=== PATIENT | male | born 1990 | race Caucasian/White ===

== ENCOUNTER 2018-08-17 16:47 | Emergency (ER) | payer SELFPAY ==
[~2018-08-17] VITALS: Ht 177.8 cm; Wt 108.9 kg
--- OUTSIDE RECORDS SUMMARY | 2018-08-17 16:53 | XMS REPORT ---
Author Author KISHA ARIZMENDI Organization [facility] Address [address] [place] [address] Care Team Providers Care Aviation Ordnance Officer Name Role Phone KISHA ARIZMENDI Unavailable PROBLEMS Type Condition ICD9-CM Code [id number] Code Onset Dates Condition Status SNOMED Code Problem Generalized anxiety disorder F41.1 Active 96959661 Problem 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.25 Active 69404122 Problem Major depression, recurrent, chronic F33.9 Active 62258694 Problem HSV-2 (herpes simplex virus 2) infection B00.9 Active 498358145 Problem Leukocytosis, unspecified type D72.829 Active 382810847 Problem Sebaceous cyst of penis N48.89 Active 501742900010641 Problem Acute left-sided low back pain with left-sided sciatica M54.42 Active 286861569 Problem Moderate single current episode of major depressive disorder F32.1 Active 97616552 Problem Anxiety, generalized F41.1 Active 63317677 Problem 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 Active 44930566 Problem Reactive depression F32.9 Active 01505714 Problem Adjustment disorder with depressed mood F43.21 Active 24807525 ALLERGIES No Known Allergies ENCOUNTERS Encounter Location Date Diagnosis [facility] [address] [place] [address] Jun, Bacterial conjunctivitis of left eye H10.9 [facility] [id number] [place] [address] Aug, Acute left-sided low back pain with left-sided sciatica M54.42 [facility] [id number] [place] [address]66[address] May, Encounter to establish care with new doctor Z76.89 ; Tobacco use Z72.0 ; Moderate single current episode of major depressive disorder F32.1 and 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 [facility] [address], [place] [address] May, [place] [address] [place] [address] May, Generalized anxiety disorder F41.1 ; Major depression, recurrent, chronic F33.9 ; 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.25 and Adjustment disorder with depressed mood F43.21 [facility] [address] [place] [address] May, Adjustment disorder with depressed mood F43.21 ; Anxiety, generalized F41.1 and Reactive depression F32.9 [facility] [address], [place] [address] Dec, 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 [place] [id number] [place] [address] Oct, [place] [id number] [place] [address] Oct, 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.25 ; Generalized anxiety disorder F41.1 and Major depression, recurrent, chronic F33.9 [place] [address] [address] Oct, [facility] [id number] [place] [address] Oct, Generalized anxiety disorder F41.1 and Major depression, recurrent, chronic F33.9 [facility] [address] [address] Oct, DMDD (disruptive mood dysregulation disorder) F34.81 ; Major depression, recurrent, chronic F33.9 and Generalized anxiety disorder F41.1 [place] [address] [address] Oct, Generalized anxiety disorder F41.1 ; Major depression, recurrent, chronic F33.9 and Difficulty controlling anger R45.4 [facility] [place] [address] [place] [address] Sep, Dysuria R30.0 ; Screening for STD sexually transmitted disease Z11.3 and Urethritis N34.2 [facility]ALK [facility] [place] [id number] [place] [address] Jul, Sebaceous cyst of penis N48.89 [place] [address] [address] Apr, [place] [address] [address] Mar, [facility] [place] [address] [address] Mar, Hematuria R31.9 and Testicular pain, left N50.8 [facility] [place] [id number] [place] [address] Jan, Acute upper respiratory infection, unspecified J06.9 [place] [id number] [place] [address] Mar, Exposure to venereal disease V01.6 IMMUNIZATIONS No Known Immunizations SOCIAL HISTORY Never Assessed REASON FOR VISIT left eye infection started Thursday JStrasserRN PLAN OF CARE Activity Details Follow Up 2 - 3 Days, prn Reason:if symptoms worsen VITAL SIGNS Height 71.5 in 2018-06-09 Weight 241.0 lbs 2018-06-09 Temperature 98.7 degrees Fahrenheit 2018-06-09 Heart Rate 100 bpm 2018-06-09 Respiratory Rate 22 2018-06-09 BMI 33.14 kg/m2 2018-06-09 Blood pressure systolic 130 mmHg 2018-06-09 Blood pressure diastolic 90 mmHg 2018-06-09 MEDICATIONS Medication Instructions Dosage Frequency Start Date End Date Duration Status Gentamicin Sulfate 0.3 % Ophthalmic every 4 hrs 1 drop into affected eye 4h Jun, 05 days Active RESULTS No Results PROCEDURES No Known procedures INSTRUCTIONS MEDICATIONS ADMINISTERED No Known Medications MEDICAL (GENERAL) HISTORY Type Description Date Medical History ruptured the right testicle Medical History depression Medical History anxiety Hospitalization History [facility] 2016
--- OUTSIDE RECORDS SUMMARY | 2018-08-17 16:53 | XMS REPORT ---
Author Author KARLY DUTTON Organization [facility] Address Unknown Care Team Providers Care Embedder Name Role Phone KARLY DUTTON Unavailable PROBLEMS Type Condition ICD9-CM Code [id number] Code Onset Dates Condition Status SNOMED Code Problem Sebaceous cyst of penis N48.89 Active 525430276007077 Problem Major depression, recurrent, chronic F33.9 Active 53785285 Problem Generalized anxiety disorder F41.1 Active 40150965 Problem HSV-2 (herpes simplex virus 2) infection B00.9 Active 785452284 Problem Moderate single current episode of major depressive disorder F32.1 Active 81784177 Problem Reactive depression F32.9 Active 49841607 Problem 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 Unknown Non Drug Allergy Oct, Unknown SOCIAL HISTORY No smoking Hx information available PLAN OF CARE Activity Details Follow Up 4 Weeks Reason: VITAL SIGNS Height 71.5 in 2016-10-08 Weight 254.7 lbs 2016-10-08 Heart Rate 80 bpm 2016-10-08 Respiratory Rate 20 2016-10-08 BMI 35.02 kg/m2 2016-10-08 Blood pressure systolic 138 mmHg 2016-10-08 Blood pressure diastolic 80 mmHg 2016-10-08 MEDICATIONS Medication Instructions Dosage Frequency Start Date End Date Duration Status Doxycycline Hyclate 100 MG Orally every 12 hrs 1 capsule 12h Sep, Oct, 7 days Active Oxcarbazepine 300 MG Orally voucher twice a day 1 tablet 12h Oct, 30 days Active Citalopram Hydrobromide 20 MG Orally Once a day 1 tablet 24h Oct, 30 day(s) Active RESULTS No Results PROCEDURES Procedure Date Ordered Related Diagnosis Body Site MH Office Visit, Est Pt., Level 3 Oct 08, 2016 IMMUNIZATIONS No Known Immunizations
--- OUTSIDE RECORDS SUMMARY | 2018-08-17 16:53 | XMS REPORT ---
Author Author KARLY KEATING Organization [facility] Address [address] [place] [address] Care Team Providers Care Competitive Intelligence Analyst Name Role Phone KARLY KEATING Unavailable PROBLEMS Type Condition ICD9-CM Code OIU12-YG Code Onset Dates Condition Status SNOMED Code Problem Sebaceous cyst of penis N48.89 Active 870090384185168 Problem Major depression, recurrent, chronic F33.9 Active 45428928 Problem Generalized anxiety disorder F41.1 Active 23624568 Problem HSV-2 (herpes simplex virus 2) infection B00.9 Active 300024827 Problem Moderate single current episode of major depressive disorder F32.1 Active 58320389 Problem Reactive depression F32.9 Active 18189134 Problem 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 Unknown Non Drug Allergy Sep, Unknown SOCIAL HISTORY No smoking Hx information available PLAN OF CARE Activity Details Follow Up prn Reason: VITAL SIGNS Height 71.5 in 2016-10-03 Weight 254.6 lbs 2016-10-03 Temperature 99.7 degrees Fahrenheit 2016-10-03 Heart Rate 88 bpm 2016-10-03 Respiratory Rate 18 2016-10-03 BMI 35.01 kg/m2 2016-10-03 Blood pressure systolic 144 mmHg 2016-10-03 Blood pressure diastolic 86 mmHg 2016-10-03 MEDICATIONS Medication Instructions Dosage Frequency Start Date End Date Duration Status Tylenol 325 MG Orally every 6 hrs 1 tablet as needed 6h Active Doxycycline Hyclate 100 MG Orally every 12 hrs 1 capsule 12h 30 Sep, 2016 Oct, 7 days Active RESULTS Name Result Date Reference Range CULTURE, GENITAL 2016-10-03 Genital Culture, Routine Final report Result 1 Result 2 Mixed skin charity UA LONG DIP (IN HOUSE) 2016-10-03 Lot # [id number] Exp date 2017 Clarity clear Color yellow Odor none GLU negative MERA 1+ KET negative SG >1.030 BLO negative pH 6.0 Protein 1+ URO 0.2 NIT negative NEEMA negative Lot # [id number] Exp date 2017 11 CULTURE, VIRAL (HSV W/ TYPING) 2016-10-03 HSV Culture/Type GC/CHLAM URINE (STATE) 2016-10-03 CHLAMYDIA GC PROCEDURES Procedure Date Ordered Related Diagnosis Body Site URINALYSIS, AUTO, W/O SCOPE Oct 03, 2016 No Charge Oct 03, 2016 Office Visit, Est Pt., Level 3 Oct 03, 2016 CULTURE, BACTERIA, OTHER Oct 03, 2016 AWAIS VIRUS ISOLATE, HSV Oct 03, 2016 THER/PROPH/DIAG INJ, SC/IM Oct 03, 2016 ROCEPHIN 250 MG (IM) Oct 03, 2016 IMMUNIZATIONS Vaccine Route Administration Date Status ROCEPHIN 250 MG (IM) IM Intramuscular Oct 03, 2016 Administered
--- OUTSIDE RECORDS SUMMARY | 2018-08-17 16:53 | XMS REPORT ---
Author Author KAYDEN NELSON Organization [facility] Address [address] [place] [address] Care Team Providers Care Bolt Header Name Role Phone NELSONADALBERTO ParsonsELE Unavailable PROBLEMS Type Condition ICD9-CM Code [id number] Code Onset Dates Condition Status SNOMED Code Problem Generalized anxiety disorder F41.1 Active 38711928 Problem 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.25 Active 55206019 Problem Major depression, recurrent, chronic F33.9 Active 47565990 Problem HSV-2 (herpes simplex virus 2) infection B00.9 Active 800392401 Problem Leukocytosis, unspecified type D72.829 Active 404806889 Problem Sebaceous cyst of penis N48.89 Active 639191940461312 Problem Acute left-sided low back pain with left-sided sciatica M54.42 Active 039162928 Problem Moderate single current episode of major depressive disorder F32.1 Active 04772474 Problem Anxiety, generalized F41.1 Active 87632975 Problem 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 Active 52118849 Problem Reactive depression F32.9 Active 78176405 Problem Adjustment disorder with depressed mood F43.21 Active 84331279 ALLERGIES No Known Allergies ENCOUNTERS Encounter Location Date Diagnosis [facility] [id number], [place] [address] Aug, Acute left-sided low back pain with left-sided sciatica M54.42 [facility] [id number], [place] [address] May, Encounter to establish care with new doctor Z76.89 ; Tobacco use Z72.0 ; Moderate single current episode of major depressive disorder F32.1 and 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 [facility] [id number], [place] [address] May, [place] [address] [place] [address] May, Generalized anxiety disorder F41.1 ; Major depression, recurrent, chronic F33.9 ; 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.25 and Adjustment disorder with depressed mood F43.21 [place] [address] [place] [id number] [place] [address] May, Adjustment disorder with depressed mood F43.21 ; Anxiety, generalized F41.1 and Reactive depression F32.9 [facility] [id number] [place] [address] Dec, 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 [place] [address] [id number] [place] [address]678[address] Oct, [place] [address] [address] Oct, 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.25 ; Generalized anxiety disorder F41.1 and Major depression, recurrent, chronic F33.9 [place] [id number] [place] [address]89[address] Oct, [place] [address] [address] [id number] [place] [address] Oct, Generalized anxiety disorder F41.1 and Major depression, recurrent, chronic F33.9 [place] [address] [address] [id number] [place] [address]43[address] Oct, DMDD (disruptive mood dysregulation disorder) F34.81 ; Major depression, recurrent, chronic F33.9 and Generalized anxiety disorder F41.1 [place] [id number] [place] [address]70[address] Oct, Generalized anxiety disorder F41.1 ; Major depression, recurrent, chronic F33.9 and Difficulty controlling anger R45.4 [facility] WALK IN [facility] [id number] [place] [address] Sep, Dysuria R30.0 ; Screening for STD sexually transmitted disease Z11.3 and Urethritis N34.2 [facility] IN CARE [facility] [address] [address] [id number] [place] [address] Jul, Sebaceous cyst of penis N48.89 [place] [address] [id number] [place] [address]6583[address] Apr, [facility] [address] [address] Mar, [facility] WALK IN [place] [address] [address] Mar, Hematuria R31.9 and Testicular pain, left N50.8 [facility]ALK IN [place] [id number] [place] [address] Jan, Acute upper respiratory infection, unspecified J06.9 [place] [id number] [place] [address]3599[address] Mar, Exposure to venereal disease V01.6 IMMUNIZATIONS No Known Immunizations SOCIAL HISTORY Never Assessed REASON FOR VISIT hip pain: pain started approx 3 weeks ago, no known injury. Lifts tires repetitively at work. Started radiating down left leg and into lower back 1 week ago. Cannot sit or lie without pain, most comfortable position is standing. carrie bartholomew PLAN OF CARE Activity Details Follow Up prn Reason: VITAL SIGNS Height 71.5 in 2017-08-31 Weight 240.2 lbs 2017-08-31 Temperature 98.4 degrees Fahrenheit 2017-08-31 Heart Rate 88 bpm 2017-08-31 Respiratory Rate 20 2017-08-31 BMI 33.03 kg/m2 2017-08-31 Blood pressure systolic 122 mmHg 2017-08-31 Blood pressure diastolic 76 mmHg 2017-08-31 MEDICATIONS Medication Instructions Dosage Frequency Start Date End Date Duration Status Zanaflex 4 MG Orally Three times a day 1 tablet as needed 8h Active PredniSONE 10 mg Orally Once a day 5 tabs x 4 day, 4 tabs x 4 days, 3 tabs x 4 days, 2 tabs x 4 days, then 1 tab x 4 days 24h Aug, Sep, 16 days Active Diclofenac Sodium 75 MG Orally Twice a day 1 tablet with food or milk 12h Aug, Sep, 30 day(s) Active Flexeril Active Hydrocodone-Acetaminophen 10-325 MG Orally every 6 hrs 1 tablet as needed 6h Active RESULTS Name Result Date Reference Range Xray : Spine, Lumbar 2-3 views (IN HOUSE) 2017-08-31 PROCEDURES Procedure Date Ordered Result Body Site X-RAY EXAM OF LOWER SPINE Aug 31, 2017 INSTRUCTIONS MEDICATIONS ADMINISTERED No Known Medications MEDICAL (GENERAL) HISTORY Type Description Date Medical History ruptured the right testicle Medical History depression Medical History anxiety Hospitalization History [facility] 2016
--- OUTSIDE RECORDS SUMMARY | 2018-08-17 16:53 | XMS REPORT ---
Author Author KAYDEN NELSON Organization [facility] Address [address] [place] [address] Care Team Providers Care Senior Data Analyst Name Role Phone NELSON KAYDEN Unavailable PROBLEMS Type Condition ICD9-CM Code [id number] Code Onset Dates Condition Status SNOMED Code Problem Generalized anxiety disorder F41.1 Active 87308745 Problem 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.25 Active 92131326 Problem Major depression, recurrent, chronic F33.9 Active 74974960 Problem HSV-2 (herpes simplex virus 2) infection B00.9 Active 964277925 Problem Leukocytosis, unspecified type D72.829 Active 011367337 Problem Sebaceous cyst of penis N48.89 Active 674398127480426 Problem Acute left-sided low back pain with left-sided sciatica M54.42 Active 339727766 Problem Moderate single current episode of major depressive disorder F32.1 Active 22833820 Problem Anxiety, generalized F41.1 Active 70050840 Problem 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 Active 25676544 Problem Reactive depression F32.9 Active 93189091 Problem Adjustment disorder with depressed mood F43.21 Active 55613372 ALLERGIES No Known Allergies ENCOUNTERS Encounter Location Date Diagnosis [facility]ARE [id number], [place] [address] Aug, Acute left-sided low back pain with left-sided sciatica M54.42 [facility] [id number], [place] [address] May, Encounter to establish care with new doctor Z76.89 ; Tobacco use Z72.0 ; Moderate single current episode of major depressive disorder F32.1 and 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 [facility] [id number], [place] [address] May, [place] [address] [place] [address] May, Generalized anxiety disorder F41.1 ; Major depression, recurrent, chronic F33.9 ; 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.25 and Adjustment disorder with depressed mood F43.21 [place] [address] [place] [id number] [place] [address] 25657[address] May, Adjustment disorder with depressed mood F43.21 ; Anxiety, generalized F41.1 and Reactive depression F32.9 [facility] [id number] [place] [address] Dec, 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 [place] [address] [address] [id number] [place] [address]27[address] Oct, [place] [address] [address] Oct, 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.25 ; Generalized anxiety disorder F41.1 and Major depression, recurrent, chronic F33.9 [place] [id number] [place] [address] Oct, [place] [address] [id number] [place] [address] 65029[address] Oct, Generalized anxiety disorder F41.1 and Major depression, recurrent, chronic F33.9 [place] [id number] [place] [address]24[address] Oct, DMDD (disruptive mood dysregulation disorder) F34.81 ; Major depression, recurrent, chronic F33.9 and Generalized anxiety disorder F41.1 [place] [id number] [place] [address] Oct, Generalized anxiety disorder F41.1 ; Major depression, recurrent, chronic F33.9 and Difficulty controlling anger R45.4 [facility] WALK IN [facility] [id number] [place] [address] Sep, Dysuria R30.0 ; Screening for STD sexually transmitted disease Z11.3 and Urethritis N34.2 [facility] [address] [place] [address] Jul, Sebaceous cyst of penis N48.89 [facility] [id number] [place] [address] Apr, [facility] [address] [address] Mar, [facility] WALK IN [place] [address] [address] Mar, Hematuria R31.9 and Testicular pain, left N50.8 [facility]ALK IN [place] [address] [id number] [place] [address] Jan, Acute upper respiratory infection, unspecified J06.9 [place] [address] [id number] [place] [address] 17 Mar, 2015 Exposure to venereal disease V01.6 IMMUNIZATIONS No Known Immunizations SOCIAL HISTORY Never Assessed REASON FOR VISIT Establish Care, pt. states he has genital herpes and had an outbreak but took the 7 day medication and hasnt had an outbreak since--YOAN Huber PLAN OF CARE Activity Details Follow Up 3 Months Reason:[facility] VITAL SIGNS Height 71.5 in 2017-05-28 Weight 225.9 lbs 2017-05-28 Temperature 98.1 degrees Fahrenheit 2017-05-28 Heart Rate 82 bpm 2017-05-28 Respiratory Rate 18 2017-05-28 BMI 31.06 kg/m2 2017-05-28 Blood pressure systolic 131 mmHg 2017-05-28 Blood pressure diastolic 82 mmHg 2017-05-28 MEDICATIONS No Known Medications RESULTS Name Result Date Reference Range THYROID ANALYZER 2017-05-28 TSH 0.898 0.450-4.500 A1C 2017-05-28 Hemoglobin A1c 4.8 4.8-5.6 CBC 2017-05-28 WBC 11.8 3.4-10.8 RBC 5.36 4.14-5.80 Hemoglobin 16.0 12.6-17.7 Hematocrit 47.9 37.5-51.0 MCV 89 79-97 MCH 29.9 26.6-33.0 MCHC 33.4 31.5-35.7 RDW 13.9 12.3-15.4 Platelets 201 150-379 Neutrophils 63 Lymphs 24 Monocytes 9 Eos 4 Basos 0 Neutrophils (Absolute) 7.4 1.4-7.0 Lymphs (Absolute) 2.8 0.7-3.1 Monocytes(Absolute) 1.0 0.1-0.9 Eos (Absolute) 0.5 0.0-0.4 Baso (Absolute) 0.0 0.0-0.2 Immature Granulocytes 0 Immature Grans (Abs) 0.0 0.0-0.1 LIPID PANEL 2017-05-28 Cholesterol, Total 154 100-199 Triglycerides 139 0-149 HDL Cholesterol 43 >39 VLDL Cholesterol Clay 28 5-40 LDL Cholesterol Calc 83 0-99 CMP 2017-05-28 Glucose, Serum 89 65-99 BUN 7 6-20 Creatinine, Serum 0.88 0.76-1.27 eGFR If NonAfricn Am 120 >59 eGFR If Africn Am 139 >59 BUN/Creatinine Ratio 8 9-20 Sodium, Serum 144 134-144 Potassium, Serum 3.9 3.5-5.2 Chloride, Serum 105 96-106 Carbon Dioxide, Total 23 18-29 Calcium, Serum 9.5 8.7-10.2 Protein, Total, Serum 7.0 6.0-8.5 Albumin, Serum 4.6 3.5-5.5 Globulin, Total 2.4 1.5-4.5 A/G Ratio 1.9 1.2-2.2 Bilirubin, Total 0.3 0.0-1.2 Alkaline Phosphatase, S 98 39-117 AST (SGOT) 19 0-40 ALT (SGPT) 22 0-44 PROCEDURES Procedure Date Ordered Result Body Site Hemoglobin Test Send Out 0 dollar May 28, 2017 COMPLETE CBC W/AUTO DIFF WBC May 28, 2017 VENIPUNCT, ROUTINE* May 28, 2017 ASSAY THYROID STIM HORMONE May 28, 2017 COMPREHEN METABOLIC PANEL May 28, 2017 LIPID PANEL May 28, 2017 INSTRUCTIONS MEDICATIONS ADMINISTERED No Known Medications MEDICAL (GENERAL) HISTORY Type Description Date Medical History ruptured the right testicle Medical History depression Medical History anxiety Hospitalization History [facility]
--- OUTSIDE RECORDS SUMMARY | 2018-08-17 16:53 | XMS REPORT ---
Author Author BRANDON ORR [facility] eClinicalWorks Address Unknown Phone Unavailable Care Team Providers Care Pharmacy Scheduler Name Role Phone BRANDON ORR CP Unavailable Allergies, Adverse Reactions, Alerts Substance Reaction Event Type N.K.D.A. Info Not Available Non Drug Allergy Problems Problem Type Condition Code Onset Dates Condition Status Assessment Sebaceous cyst of penis N48.89 Active Problem Sebaceous cyst of penis N48.89 Active Medications No Known Medications Procedures Procedure Coding System Code Date Office Visit, Est Pt., Level 3 CPT-4 32342 Jul 28, 2016 Vital Signs Date/Time: Jul 28, 2016 Cardiac Monitoring Heart Rate 100 bpm Weight 267.8 lbs Height 71.5 in BMI 36.83 Index Blood Pressure Diastolic 98 mmHg Blood Pressure Systolic 134 mmHg Results No Known Results Summary Purpose eClinicalWorks Submission
--- OUTSIDE RECORDS SUMMARY | 2018-08-17 16:53 | XMS REPORT ---
Author Author KALA DUNLAP [facility] Address [address] [place] [address] Care Team Providers Care Sand Cutter Name Role Phone KALA DUNLAP Unavailable PROBLEMS Type Condition ICD9-CM Code [id number] Code Onset Dates Condition Status SNOMED Code Problem Sebaceous cyst of penis N48.89 Active 132788311341546 Problem Major depression, recurrent, chronic F33.9 Active 40339264 Problem Generalized anxiety disorder F41.1 Active 89169488 Problem HSV-2 (herpes simplex virus 2) infection B00.9 Active 358477703 Problem Moderate single current episode of major depressive disorder F32.1 Active 26841804 Problem Reactive depression F32.9 Active 49487910 Problem 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 Active 22091338 Problem 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.25 Active 89655185 Problem Adjustment disorder with depressed mood F43.21 Active 81569629 Problem Anxiety, generalized F41.1 Active 50406690 ALLERGIES Unknown Allergies SOCIAL HISTORY No smoking Hx information available PLAN OF CARE Activity Details Follow Up Next available Reason:anger, depression, anxiety VITAL SIGNS MEDICATIONS Unknown Medications RESULTS No Results PROCEDURES Procedure Date Ordered Related Diagnosis Body Site Psychotherapy, patient &/family, 30 minutes, established patient Oct 08, 2016 IMMUNIZATIONS No Known Immunizations
--- OUTSIDE RECORDS SUMMARY | 2018-08-17 16:54 | XMS REPORT ---
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 Active 678226003 Problem Leukocytosis, unspecified type D72.829 Active 766711601 Problem Moderate single current episode of major depressive disorder F32.1 Active 39748939 Problem Reactive depression F32.9 Active 73126378 Problem 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 Active 39377990 Problem 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.25 Active 42506254 Problem Adjustment disorder with depressed mood F43.21 Active 91938974 Problem Anxiety, generalized F41.1 Active 91357506 ALLERGIES Unknown Allergies SOCIAL HISTORY No smoking Hx information available PLAN OF CARE Activity Details Follow Up 1 Week Reason:anger depression VITAL SIGNS MEDICATIONS Unknown Medications RESULTS No Results PROCEDURES Procedure Date Ordered Related Diagnosis Body Site Psychotherapy, patient &/family, 45 minutes, established patient Oct 16, 2016 IMMUNIZATIONS No Known Immunizations
--- OUTSIDE RECORDS SUMMARY | 2018-08-17 16:54 | XMS REPORT ---
Author Author GOVIND WOODARD [facility] eClinicalWorks Address Unknown Phone Unavailable Care Team Providers Care Press Tender Star Signal Name Role Phone GOVIND WOODARD CP Unavailable Allergies, Adverse Reactions, Alerts Substance Reaction Event Type N.K.D.A. Info Not Available Non Drug Allergy Problems Problem Type Condition Code Onset Dates Condition Status Assessment Acute upper respiratory infection, unspecified J06.9 Active Medications Medication Code System Code Instructions Start Date End Date Status Dosage NyQuil NDC 0 not defined Flexeril NDC 0 not defined Tylenol NDC [address]-96 325 MG Orally every 6 hrs 1 [place] [address]-47 8 MG Orally 3 times a day January 16, 2016 1 tablet on the tongue and allow to dissolve Procedures Procedure Coding System Code Date Office Visit, Est Pt., Level 3 CPT-4 74866 January 16, 2016 Vital Signs Date/Time: January 16, 2016 Temperature 99.7 F Weight 268.4 lbs Height 71.5 in BMI 36.91 Index Blood Pressure Diastolic 84 mmHg Blood Pressure Systolic 124 mmHg Cardiac Monitoring Heart Rate 102 bpm Results No Known Results Summary Purpose eClinicalWorks Submission
--- OUTSIDE RECORDS SUMMARY | 2018-08-17 16:54 | XMS REPORT ---
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 Active 753393974 Problem Leukocytosis, unspecified type D72.829 Active 111334818 Problem Moderate single current episode of major depressive disorder F32.1 Active 44255214 Problem Reactive depression F32.9 Active 84816090 Problem 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
--- OUTSIDE RECORDS SUMMARY | 2018-08-17 16:54 | XMS REPORT ---
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 Active 493005211 Problem Moderate single current episode of major depressive disorder F32.1 Active 00789010 Problem Reactive depression F32.9 Active 51013531 Problem 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 Active 68854628 Problem 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.25 Active 10818273 Problem Adjustment disorder with depressed mood F43.21 Active 00908407 Problem Anxiety, generalized F41.1 Active 35495633 ALLERGIES Unknown Allergies SOCIAL HISTORY No smoking Hx information available PLAN OF CARE Activity Details Follow Up 1 Week Reason:anger, depression, anxiety VITAL SIGNS MEDICATIONS Unknown Medications RESULTS No Results PROCEDURES Procedure Date Ordered Related Diagnosis Body Site Psych diagnostic evaluation, new patient Oct 07, 2016 IMMUNIZATIONS No Known Immunizations
--- OUTSIDE RECORDS SUMMARY | 2018-08-17 16:54 | XMS REPORT ---
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 Active 022607714 Problem Leukocytosis, unspecified type D72.829 Active 111568819 Problem Moderate single current episode of major depressive disorder F32.1 Active 76590484 Problem Reactive depression F32.9 Active 47293890 Problem 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 Active 85608741 Problem 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.25 Active 59500572 Problem Adjustment disorder with depressed mood F43.21 Active 27174277 Problem Anxiety, generalized F41.1 Active 31668548 ALLERGIES No Known Allergies SOCIAL HISTORY Never Assessed PLAN OF CARE VITAL SIGNS Height 71.5 in 2016-12-03 Weight 245.4 lbs 2016-12-03 Temperature 98.4 degrees Fahrenheit 2016-12-03 Heart Rate 84 bpm 2016-12-03 Respiratory Rate 18 2016-12-03 BMI 33.75 kg/m2 2016-12-03 Blood pressure systolic 144 mmHg 2016-12-03 Blood pressure diastolic 86 mmHg 2016-12-03 MEDICATIONS Medication Instructions Dosage Frequency Start Date End Date Duration Status Acyclovir 400 mg Orally Five times a day 2 tablets Dec, 07 days Active RESULTS No Results PROCEDURES No Known procedures IMMUNIZATIONS No Known Immunizations MEDICAL (GENERAL) HISTORY Type Description Date Medical History ruptured the right testicle Medical History depression Medical History anxiety Hospitalization History [facility] 2016
[2018-08-17] MEDS ORDERED: ORPHENADRINE 60 MG/2 ML (NORFLEX) AMP IM ONE (17:15)
[2018-08-17] MEDS ORDERED: KETOROLAC 60 MG/2 ML VIAL IM ONE (17:15)
--- NOTE | 2018-08-17 17:19 | ED Hip Pain/Injury ---
General Chief Complaint: Hip/Pelvic Problems Stated Complaint: L HIP PAIN Source: patient Exam Limitations: no limitations History of Present Illness Date Seen by Provider: Aug 17, 2018 Time Seen by Provider: 17:14 Initial Comments To ER with c/o severe posterior left hip pain after getting out of his car at noon today. No falls or other injury. No loss of bowel or bladder control. No history of IV drug use. No fevers or chills. No loss of sensation of his genitals. Pain is somewhat better in a forward flexed position. Does not have a family physician, states that he is just moved here fairly recently from [place]. Timing/Duration: constant Severity: moderate Location: hip (L) Modifying Factors: Worse With Movement Allergies and Home Medications Allergies Coded Allergies: No Known Drug Allergies (Unverified , 08/17/18) Home Medications Methocarbamol 750 Mg Tablet, 750 MG PO Q6H PRN for PAIN-MODERATE TO SEVERE Prescribed by: CHANA WEI on 08/17/18 172 Prednisone 20 Mg Tab, 40 MG PO DAILY Prescribed by: CHANA WEI on 08/17/18 1720 Patient Home Medication List Home Medication List Reviewed: Yes Review of Systems Constitutional: see HPI EENTM: see HPI Respiratory: no symptoms reported Cardiovascular: no symptoms reported Genitourinary: no symptoms reported Musculoskeletal: see HPI, back pain Skin: no symptoms reported Psychiatric/Neurological: No Symptoms Reported Past Laojsjm-Vcqftk-Juvdve Hx Patient Social History Recent Foreign Travel: No Contact w/Someone Who Travel: No Physical Exam Vital Signs Vital Signs - First Documented 08/17/18 17:08 Temp 98.0 Pulse 90 Resp 20 B/P (MAP) 144/96 (112) Pulse Ox 97 O2 Delivery Room Air Capillary Refill : Height, Weight, BMI Height: '" Weight: lbs. oz. kg; BMI Method: General Appearance: No Apparent Distress, WD/WN HEENT: PERRL/EOMI, TMs Normal Respiratory: Lungs Clear, Normal Breath Sounds, No Accessory Muscle Use, No Respiratory Distress Gastrointestinal: Non Tender, Soft Extremity: Normal Capillary Refill, Normal Inspection Neurologic/Psychiatric: Alert, Oriented x3, No Motor/Sensory Deficits Skin: Normal Color, Warm/Dry Progress/Results/Core Measures Results/Orders Lab Results Laboratory Tests Test 08/17/18 18:09 Range/Units Urine Color YELLOW Urine Clarity SLIGHTLY CLOUDY Urine pH 5 5-9 Urine Specific [place] 1.020 1.016-1.022 Urine Protein 2+ H NEGATIVE Urine Glucose (UA) NEGATIVE NEGATIVE Urine Ketones NEGATIVE NEGATIVE Urine Nitrite NEGATIVE NEGATIVE Urine Bilirubin NEGATIVE NEGATIVE Urine Urobilinogen NORMAL NORMAL MG/DL Urine Leukocyte Esterase 2+ H NEGATIVE Urine RBC (Auto) NEGATIVE NEGATIVE Urine RBC NONE /HPF Urine WBC 2-5 /HPF Urine Squamous Epithelial Cells 0-2 /HPF Urine Crystals NONE /LPF Urine Bacteria NONE /HPF Urine Casts NONE /LPF Urine Mucus SMALL H /LPF Urine Culture Indicated NO Urine Opiates Screen NEGATIVE NEGATIVE Urine Oxycodone Screen NEGATIVE NEGATIVE Urine Methadone Screen NEGATIVE NEGATIVE Urine Propoxyphene Screen NEGATIVE NEGATIVE Urine Barbiturates Screen NEGATIVE NEGATIVE Ur Tricyclic Antidepressants Screen NEGATIVE NEGATIVE Urine Phencyclidine Screen NEGATIVE NEGATIVE Urine Amphetamines Screen NEGATIVE NEGATIVE Urine Methamphetamines Screen NEGATIVE NEGATIVE Urine Benzodiazepines Screen NEGATIVE NEGATIVE Urine Cocaine Screen NEGATIVE NEGATIVE Urine Cannabinoids Screen NEGATIVE NEGATIVE My Orders Orders - CHANA WEI APRN Ketorolac Injection (Toradol Injection) (08/17/18 17:15) Orphenadrine Injection (Norflex Injectio (08/17/18 17:15) Drug Screen Stat (Urine) (08/17/18 17:58) Ua Culture If Indicated (08/17/18 17:58) Morphine Injection (Morphine Injection (08/17/18 18:00) Rx-Hydrocodone/Apap 5-325 Mg (Rx-Vicodin (08/17/18 19:30) Medications Given in ED Current Medications Medications Dose Ordered Sig/Rakan Route Start Time Stop Time Status Last Admin Dose Admin Ketorolac Tromethamine 60 mg ONCE ONCE IM 08/17/18 17:15 08/17/18 17:16 DC 08/17/18 17:25 60 MG Morphine Sulfate 8 mg ONCE ONCE IJ 08/17/18 18:00 08/17/18 18:01 DC 08/17/18 18:50 8 MG Orphenadrine Citrate 60 mg ONCE ONCE IM 08/17/18 17:15 08/17/18 17:16 DC 08/17/18 17:25 60 MG Vital Signs/I&O 08/17/18 17:08 Temp 98.0 Pulse 90 Resp 20 B/P (MAP) 144/96 (112) Pulse Ox 97 O2 Delivery Room Air Departure Communication (Admissions) 1800-no improvement in pain. Discussed if he needed something*with pain we would need a urine drug screen first. He states he would be happy to provide this. 1927- at the time of discharge he lowered himself slowly to the floor over the course of 2-3 minutes. Unable to stand up straight due to the severe pain. I did order a hydrocodone and we will do a CT lumbar spine Impression Primary Impression: Lumbar radiculopathy, acute Disposition: 01 HOME, SELF-CARE Condition: Stable Departure-Patient Inst. Decision time for Depature: 17:17 Referrals: [facility]/ (PCP) Primary Care Physician Patient Instructions: Radiculopathy Add. Discharge Instructions: 1. Steroids as directed in addition muscle relaxers. Call a physician of your choosing tomorrow for an appointment to be seen. Most back pain resolves on its own but takes a few days to weeks. If pain persists, MRI would be warranted at some point. All discharge instructions reviewed with patient and/or family. Voiced understanding. Scripts Methocarbamol (Robaxin-750) 750 Mg Tablet 750 MG PO Q6H PRN for PAIN-MODERATE TO SEVERE, #20 TAB Prov: CHANA WEI PROCESS MACHINE OPERATOR 08/17/18 Prednisone (Prednisone) 20 Mg Tab 40 MG PO DAILY, #8 TAB Prov: CHANA WEI PROCESS MACHINE OPERATOR 08/17/18 CHANA WEI APRN Aug 17, 2018 17:19
[2018-08-17] MEDS ORDERED: PRD20T PO (17:20)
[2018-08-17] MEDS ORDERED: METH-313 PO (17:20)
[2018-08-17] MEDS ORDERED: morphine INJ 10 MG/ML 1ML (SYR OR VIAL) IJ ONE (18:00)
[2018-08-17 18:17] LABS: BILIRUBIN,URINE NEGATIVE (NEGATIVE); CLARITY,URINE SLIGHTLY CLOUDY; COLOR,URINE YELLOW; GLUCOSE, URINE (UA) NEGATIVE (NEGATIVE); KETONES,URINE NEGATIVE (NEGATIVE); LEUKOCYTE ESTERASE ,URINE 2+ (NEGATIVE); NITRITE,URINE NEGATIVE (NEGATIVE); PH,URINE 5 (5-9); PROTEIN,URINE 2+ (NEGATIVE); UROBILINOGEN,URINE NORMAL (NORMAL)
[2018-08-17 18:26] LABS: SQUAMOUS EPITHELIAL CELL,UR 0-2 /HPF
[2018-08-17 18:34] LABS: AMPHETAMINE SCREEN, URINE NEGATIVE (NEGATIVE); BARBITURATE SCREEN URINE NEGATIVE (NEGATIVE); BENZODIAZEPINES SCREEN URINE NEGATIVE (NEGATIVE); CANNABINOID SCREEN, URINE NEGATIVE (NEGATIVE); COCAINE SCREEN URINE NEGATIVE (NEGATIVE); METHADONE STAT NEGATIVE (NEGATIVE); METHAMPHETAMINE SCREEN URINE S NEGATIVE (NEGATIVE); OPIATE SCREEN URINE NEGATIVE (NEGATIVE); OXYCODONE STAT NEGATIVE (NEGATIVE); PROPOXYPHENE STAT NEGATIVE (NEGATIVE); TRICYCLIC ANTIDEPRESSANTS SCRE NEGATIVE (NEGATIVE)
[2018-08-17] MEDS ORDERED: RX-HYDROCODONE/APAP 5/325 MG #4 TAB PK PO PRN (19:30)
--- NOTE | 2018-08-17 20:27 | Diagnostic Imaging Report ---
PROCEDURE: CT lumbar spine without contrast. TECHNIQUE: Multiple contiguous axial images were obtained through the lumbar spine without the use of intravenous contrast. Sagittal and coronal reformations were then performed. INDICATION: Recurrent lower back pain with left lower extremity pain. No known injury. COMPARISON STUDIES: None FINDINGS: Noncontrast CT scanning of the lumbar spine demonstrates no fracture or subluxation. The surrounding soft tissues appear normal. The L4-5 level demonstrates a calcified disc bulge with moderate central stenosis. The L5-S1 level demonstrates disc space narrowing with disc osteophyte complex causing mild central stenosis. IMPRESSION: There are disc osteophyte complexes at L4-5 greater than L5-S1 with central stenosis. Dictated by: Dictated on workstation # [id number]
[2018-08-17 20:40] VITALS: BP 122/80
== END 2018-08-17 20:40 | disposition home or self-care (01) ==
LOC: EDUNIT# 16:47 → ER 16:48
DX: M54.16 Radiculopathy, lumbar region (principal); Z79.52 Long term (current) use of systemic steroids
CPT/HCPCS: 72131; 80306; 81000; 96372

== ENCOUNTER 2019-01-21 16:06 | Emergency (ER) | payer OTHER ==
[~2019-01-21] VITALS: Ht 180.3 cm; Wt 108.9 kg
[~2019-01-21 16:06] MED LIST: METH-313 PO; PRD20T PO
--- NOTE | 2019-01-21 16:54 | Diagnostic Imaging Report ---
INDICATION: Left ankle pain. AP, oblique, and lateral views of the left ankle are obtained. No fracture or acute bony abnormality is seen. IMPRESSION: Negative left ankle. Dictated by: Dictated on workstation # [id number]
--- NOTE | 2019-01-21 17:02 | Diagnostic Imaging Report ---
CLINICAL INDICATION: Patient hurt left ankle/foot today. 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 EXAM: X-ray of the left foot, three views. COMPARISON: X-ray of the left ankle dated 01/21/2019. FINDINGS: X-ray of the left foot shows no acute fracture or dislocation. There is no significant bone or joint abnormality. The midfoot and hindfoot structures are unremarkable. IMPRESSION: Unremarkable x-ray of the left foot with no evidence for acute fracture or dislocation. Dictated by: Dictated on workstation # [id number]
--- NOTE | 2019-01-21 17:27 | ED Lower Extremity ---
General Chief Complaint: Lower Extremity Stated Complaint: L ANKLE/FOOT INJ Nursing Triage Note: PT TO FT BY WHEELCHAIR WITH COMPLAINT OF LEFT FOOT INJURY. PT STATES HE FELL AT WORK AND FELT A "POP". Nursing Sepsis Screen: No Definite Risk History of Present Illness Date Seen by Provider: Jan 21, 2019 Time Seen by Provider: 16:45 Initial Comments 28-year-old male presents for left foot and ankle pain after sustaining an inversion injury to his left foot at work this morning. He denies any previous history of injuries to his left foot or ankle. He was able to continue working but had difficulty bearing weight. He required a wheelchair. Onset: this morning Pain/Injury Location: left foot, left ankle Method of Injury: twisted Allergies and Home Medications Allergies Coded Allergies: No Known Drug Allergies (Unverified , 08/17/18) Home Medications Methocarbamol 750 Mg Tablet, 750 MG PO Q6H PRN for PAIN-MODERATE TO SEVERE Prescribed by: CHANA WEI on 08/17/181719 Prednisone 20 Mg Tab, 40 MG PO DAILY Prescribed by: CHANA WEI on 08/17/181719 Patient Home Medication List Home Medication List Reviewed: Yes Review of Systems Constitutional: no symptoms reported, see HPI Musculoskeletal: see HPI, joint pain (left ankle), muscle pain All Other Systems Reviewed Negative Unless Noted: Yes Past Wjzmkqr-Inqbvz-Azcmro Hx Past Med/Social Hx: Reviewed Nursing Past Med/Soc Hx Patient Social History Alcohol Use: Occasionally Uses Recreational Drug Use: Yes Drug of Choice: marijuana Type Used: Cigarettes Recent Foreign Travel: No Contact w/Someone Who Travel: No Recent Infectious Disease Expo: No Recent Hopitalizations: No Immunizations Up To Date Tetanus Booster (TDap): More than 5yrs PED Vaccines UTD: Yes Seasonal Allergies Seasonal Allergies: No Past Medical History Surgeries: No Respiratory: No Cardiac: No Neurological: No Genitourinary: No Gastrointestinal: No Musculoskeletal: No Endocrine: No HEENT: No Cancer: No Psychosocial: No Integumentary: No Blood Disorders: No Physical Exam Vital Signs Vital Signs - First Documented 01/21/19 16:15 Temp 98.4 Pulse 82 Resp 16 B/P (MAP) 154/92 (112) Pulse Ox 99 O2 Delivery Room Air Capillary Refill : Less Than 3 Seconds Height, Weight, BMI Height: 5'11.00" Weight: 240lbs. oz. 108.828242en; BMI Method:Stated General Appearance: WD/WN, no apparent distress HEENT: PERRL/EOMI, normal ENT inspection, TMs normal, pharynx normal Neck: non-tender, full range of motion, supple, normal inspection Cardiovascular: normal peripheral pulses, regular rate, rhythm Respiratory: chest non-tender, lungs clear, normal breath sounds Gastrointestinal: normal bowel sounds, non tender, soft Ankles: left ankle bone tenderness (lateral aspect), left ankle limited range of motion (secondary to pain), left ankle pain, left ankle soft tissue tenderness, left ankle swelling Feet: left foot limited range of motion, left foot pain (lateral aspect), left foot soft tissue tenderness Neurologic/Tendon: normal sensation, normal motor functions, normal tendon functions Neurologic/Psychiatric: no motor/sensory deficits, alert, normal mood/affect, oriented x 3 Skin: normal color, warm/dry Progress/Results/Core Measures Results/Orders My Orders Orders - KAVON MOREL Foot, Left, 3 Views (01/21/19 16:27) Ankle, Left, 3 Views (01/21/19 16:27) Vital Signs/I&O 01/21/19 01/21/19 16:15 17:55 Temp 98.4 98.4 Pulse 82 82 Resp 16 16 B/P (MAP) 154/92 (112) 154/92 (112) Pulse Ox 99 99 O2 Delivery Room Air Blood Pressure Mean: 112 Diagnostic Imaging Diagonstic Imaging: Xray Plain Films/CT/US/NM/MRI: ankle Comments NAME: [facility] REC#: [id number] PT STATUS: REG ER : 1990 PHYSICIAN: KAVON MOREL ADMIT DATE: 01/21/19/ER Signed Date of Exam: 01/21/19 ANKLE, LEFT, 3 VIEWS INDICATION: Left ankle pain. AP, oblique, and lateral views of the left ankle are obtained. No fracture or acute bony abnormality is seen. IMPRESSION: Negative left ankle. Dictated by: Dictated on workstation # [id number] Dict: 01/21/19 1652 Trans: 01/21/19 1701 Interpreted by: KALA DELGADILLO MD Electronically signed by: KALA DELGADILLO MD 01/21/19 1701 Diagonstic Imaging: Xray Plain Films/CT/US/NM/MRI: other (foot) Comments NAME: [facility] REC#: [id number] PT STATUS: REG ER : 1990 PHYSICIAN: KAVON MOREL ADMIT DATE: 01/21/19/ER Draft Date of Exam:01/21/19 FOOT, LEFT, 3 VIEWS CLINICAL INDICATION: Patient hurt left ankle/foot today. 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 EXAM: X-ray of the left foot, three views. COMPARISON: X-ray of the left ankle dated 01/21/2019. FINDINGS: X-ray of the left foot shows no acute fracture or dislocation. There is no significant bone or joint abnormality. The midfoot and hindfoot structures are unremarkable. IMPRESSION: Unremarkable x-ray of the left foot with no evidence for acute fracture or dislocation. Dictated on workstation # [id number] Dict: 01/21/19 1652 Trans: 01/21/19 1701 [id number] Interpreted by: ARIANE WIN MD Electronically signed by: Departure Impression Primary Impression: Left ankle sprain Qualified Codes: S93.492A - Sprain of other ligament of left ankle, initial encounter Disposition: 01 HOME, SELF-CARE Condition: Improved Departure-Patient Inst. Decision time for Depature: 17:30 Referrals: NO,LOCAL PHYSICIAN (PCP/Family) Primary Care Physician Patient Instructions: Ankle Sprain (DC) Add. Discharge Instructions: Ice and elevate left ankle 20 min every 2 hours while awake, use Willard wrap. You may alternate between Tylenol 650 mg and ibuprofen 600 mg every 4 hours for pain. Ambulate with crutches, weightbearing as tolerated, until you are able to ambulate without a limp. Gentle range of motion to the left ankle. Follow-up with a primary care provider or [facility]. Return to emergency department for new, urgent health care needs. All discharge instructions reviewed with patient and/or family. Voiced understanding. Work/School Note: Work Release Form Date Seen in the Emergency Department: Jan 21, 2019 Return to Work: Jan 24, 2019 Restrictions: Follow Up With [facility] Other Restrictions Listed Below: Crutches, ice and elevate left ankle KAVON MOREL Jan 21, 2019 17:27
[2019-01-21 17:55] VITALS: BP 154/92
== END 2019-01-21 17:56 | disposition home or self-care (01) ==
LOC: EDUNIT# 16:06 → ER 16:07
DX: S93.492A Sprain of other ligament of left ankle, initial encounter (principal); F12.10 Cannabis abuse, uncomplicated; Z79.52 Long term (current) use of systemic steroids; Y92.59 Other trade areas as the place of occurrence of the external cause; Y99.0 Civilian activity done for income or pay
CPT/HCPCS: 73610; 73630

== ENCOUNTER 2019-01-26 21:45 | Emergency (ER) | payer SELFPAY ==
[~2019-01-26] VITALS: Ht 180.3 cm; Wt 106.6 kg
[2019-01-26 21:49] VITALS: BP 199/82
[2019-01-26] MEDS ORDERED: NS IV 1000 ML 1,000 ML IV SCH (22:01)
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
[2019-01-26 22:22] LABS: BASOPHILS % (AUTO) 0 % (0-10); EOSINOPHILS # (AUTO) 0.5 10^3/uL (0.0-0.3); EOSINOPHILS % (AUTO) 5 % (0-10); HEMATOCRIT 49 % (40-54); HEMOGLOBIN 16.6 G/DL (13.3-17.7); LYMPHOCYTES # (AUTO) 2.8 X 10^3 (1.0-4.0); LYMPHOCYTES % (AUTO) 27 % (12-44); MEAN CORPUSCULAR HEMOGLOBIN 30 PG (25-34); MEAN CORPUSCULAR HGB CONC 34 G/DL (32-36); MEAN CORPUSCULAR VOLUME 89 FL (80-99); MEAN PLATELET VOLUME 11.3 FL (7.4-10.4); MONOCYTES # (AUTO) 1.1 X 10^3 (0.0-1.0); MONOCYTES % (AUTO) 11 % (0-12); NEUTROPHILS # (AUTO) 5.9 X 10^3 (1.8-7.8); NEUTROPHILS % (AUTO) 57 % (42-75); PLATELET COUNT 220 10^3/uL (130-400); RED CELL DISTRIBUTION WIDTH 13.5 % (10.0-14.5); WHITE BLOOD COUNT 10.3 10^3/uL (4.3-11.0)
[2019-01-26] MEDS ORDERED: LORazepam 0.5 MG (ATIVAN) TABLET ONE (22:27)
[2019-01-26] MEDS ORDERED: LORazepam 1 MG (ATIVAN) TAB PO ONE (22:30)
--- NOTE | 2019-01-26 22:45 | NUR ---
PT REFUSES TO KEEP ECG, BP, OR PULSE OX MONITOR ON, WHILE IN ROOM. PT NOTED TO BE SITTING ON THE FLOOR TALKING WITH HIS X3 CHILDREN. A&OX4. NO DISTRESS NOTED. RESPIRATIONS EVEN AND NON LABORED. S/O @ SIDE.
[2019-01-26 23:40] LABS: BUN/CREATININE RATIO 10; CARBON DIOXIDE 20 MMOL/L (21-32); CHLORIDE 111 MMOL/L (98-107); CREATININE SERUM 1.08 MG/DL (0.60-1.30); GFR ESTIMATED > 60; SODIUM 145 MMOL/L (135-145)
[2019-01-26 23:41] LABS: ACETAMINOPHEN 29 UG/ML (10-30); ALANINE AMINOTRANSFERASE 24 U/L (0-55); ALBUMIN 4.5 GM/DL (3.2-4.5); ALKALINE PHOSPHATASE 87 U/L (40-136); BILIRUBIN,TOTAL 0.3 MG/DL (0.1-1.0); CREATINE KINASE 187 U/L (30-200); GLUCOSE 79 MG/DL (70-105); SALICYLATE < 5.0 MG/DL (5.0-20.0); TOTAL PROTEIN 7.3 GM/DL (6.4-8.2)
--- NOTE | 2019-01-26 23:59 | NUR ---
PT TO NURSES STATION STATING, "HOW LONGS THIS GOING TO TAKE, WHAT ARE WE DOING." PROVIDER EXPLAINED PLAN OF CARE. PT STATES, "I DON'T WANT TO WAIT THAT FUCKIN LONG." PT AMB BACK TO ROOM #8.
--- NOTE | 2019-01-27 | NUR ---
PT AMB OUT OF ROOM #8 WITH FAMILY @ SIDE. PT STATES, "I'M NOT WAITING ANY LONGER." PT SIGNED AMA PAPER WORK AND VERBALIZED UNDERSTANDING OF RISKS ASSOCIATED WITH LEAVING AGAINST MEDICAL ADVISE. @ TIME OF DEPARTURE PT A&OX4 WITH NO DISTRESS NOTED.
[2019-01-27 00:13] LABS: AMPHETAMINE SCREEN, URINE NEGATIVE (NEGATIVE); BARBITURATE SCREEN URINE NEGATIVE (NEGATIVE); BENZODIAZEPINES SCREEN URINE NEGATIVE (NEGATIVE); CANNABINOID SCREEN, URINE NEGATIVE (NEGATIVE); COCAINE SCREEN URINE NEGATIVE (NEGATIVE); METHADONE STAT NEGATIVE (NEGATIVE); METHAMPHETAMINE SCREEN URINE S NEGATIVE (NEGATIVE); OPIATE SCREEN URINE POSITIVE (NEGATIVE); OXYCODONE STAT NEGATIVE (NEGATIVE); PROPOXYPHENE STAT NEGATIVE (NEGATIVE); TRICYCLIC ANTIDEPRESSANTS SCRE NEGATIVE (NEGATIVE)
[2019-01-27 00:15] LABS: BACTERIA,URINE FEW /HPF; BILIRUBIN,URINE NEGATIVE (NEGATIVE); CLARITY,URINE CLEAR; COLOR,URINE YELLOW; GLUCOSE, URINE (UA) NEGATIVE (NEGATIVE); KETONES,URINE NEGATIVE (NEGATIVE); LEUKOCYTE ESTERASE ,URINE 3+ (NEGATIVE); NITRITE,URINE NEGATIVE (NEGATIVE); PH,URINE 5 (5-9); PROTEIN,URINE 2+ (NEGATIVE); UROBILINOGEN,URINE 1 MG/DL (NORMAL)
== END 2019-01-27 | disposition left against medical advice (07) ==
LOC: EDUNIT# 21:45 → ER 21:46
DX: T50.991A Poisoning by other drugs, medicaments and biological substances, accidental (unintentional), initial encounter (principal); F17.210 Nicotine dependence, cigarettes, uncomplicated; F12.10 Cannabis abuse, uncomplicated; Z79.52 Long term (current) use of systemic steroids
CPT/HCPCS: 36415; 80053; 80306; 80320; 80329; 81000; 82550; 85025; 87088; 87430; 93005; 93041